=== PATIENT | female | born 1960 | race Caucasian/White ===

== ENCOUNTER 2017-06-10 07:29 | Day surgery (SDC) | payer MEDICAID ==
[~2017-06-10] VITALS: Ht 160 cm; Wt 79.9 kg
[2017-06-10] VITALS (10 sets, daily range): BP systolic 96–124; BP diastolic 52–80; PULSE 60–70; RESP 16–22; Ht 160 cm; Wt 79.9 kg
[2017-06-10] MEDS ORDERED: POLYMYXIN/BACITRACIN 1L IRRIG IRR ONE (08:00)
[2017-06-10] MEDS ORDERED: SOD CHLORIDE 0.9% 1,000 ML IV SCH (08:00)
[2017-06-10] MEDS ORDERED: CEFAZOLIN 1 GM/50 ML (PMX) 50 ML IVPB ONE ×2 (08:00→09:18)
[2017-06-10] MEDS ORDERED: LIDOCAINE 2%/EPI 30 ML INJ ONE (09:16)
[2017-06-10] MEDS ORDERED: SOD CHLORIDE 0.9% 500 ML ONE (09:16)
[2017-06-10] MEDS ORDERED: HEPARIN 1000 UNITS/ML 10 ML INJ ONE (09:16)
[2017-06-10] MEDS ORDERED: MIDAZOLAM 1 MG/ML 2 ML INJ ONE (09:18)
[2017-06-10] MEDS ORDERED: FENTAnyl 50 MCG/ML VIAL ONE (09:18)
[2017-06-10] MEDS ORDERED: HYDROCODONE/APAP (5/325) TAB PO PRN (10:30)
--- NOTE | 2017-06-10 10:34 | RADRPT ---
PROCEDURE: FLUOROSCOPIC AND ULTRASONOGRAPHIC-GUIDED PLACEMENT OF RIGHT CHEST PORT. CLINICAL INDICATION: History of left breast cancer. Venous access for chemotherapy. TECHNIQUE: INTRAPROCEDURE MEDICATIONS: PB antibiotic solution 40 cc applied topically. 1 gram Ancef intravenous ly, intra-op. IV Versed and Fentanyl per protocol. Informed consent was obtained. The procedure, risks, benefits, complications and alternatives were explained to the patient. Risks including bleeding, infection, and pneumothorax were explained. The patient understood and was willing to proceed. A procedural pause was performed. The patient's name , date of , and procedure to be performed were verified. The central line was inserted with al l elements of maximal sterile barrier technique. All of the following were used: head covering, faci al mask, sterile gown, sterile gloves, a large sterile sheet, hand hygiene, and 2% chlorhexidine fo r cutaneous antisepsis. The right neck and anterior/superior chest wall were prepped and draped in usual sterile fashion. Limited sonography of the right neck was then performed. Noted is a patent right internal jugular ve in. Following the local injection of 1% lidocaine, the right internal jugular vein was punctured under s onographic guidance with a 20-gauge needle through which a 0.018 inch floppy tip guidewire was advan william into the superior vena cava with fluoroscopic guidance. The tract was dilated to 5 Mongolian and the wire was then replaced with a 0.035 in Amplatz guidewire. Serial dilatation was then performed and a 8 Mongolian peel away sheath was introduced. A site just inferior to the clavicle in the superior anterior right chest wall was localized. One pe rcent lidocaine was used as local anesthesia. A transverse 2.5 cm incision was made utilizing a 15 b lade scalpel. Utilizing blunt dissection a subcutaneous pocket was created inferior to the incision. The cavity was flushed with approximately 40 cc of PB antibiotic solution. The catheter was tunneled underneath the skin from the newly created pocket to the puncture site in the neck. The central line catheter was pulled through the tract. The catheter was then advanced thr ough the sheath until the tip was positioned in the right atrium. The peel-away sheath was removed. The catheter was flushed and clamped. The 8 Mongolian catheter was then connected to the Angiodynamics power port. The port was then placed i nto the pocket. Prior to closing the instrument and sponge count was verified and was correct. The s ubcutaneous tissue was closed with 3-0 Vicryl interrupted suture. The skin at the site of the pocket and in the neck was closed with 4-0 Vicryl suture in a running subcuticular technique. The port was flushed with 1500 units of heparin in 1.5 cc utilizing a Holguin needle. The needle was removed. A dr essing was applied. The patient tolerated procedure well. COMPARISON: None. FINDINGS: Ultrasound images were recorded and stored in the patient's medical record. Final radiographic images demonstrate the tip of the catheter in the upper right atrium. A total of 0.1 minutes of fluoroscopy time was used. 5 images of the chest were obtained with the [employer]. The ultrasound images demonstrate the needle entering the internal jugular vein. IMPRESSION: 1. Successful ultrasonographic and fluoroscopic guided placement of right chest power port. RPTAT: QQ .Eugenio Kee MD, Date Time Electronically viewed and signed by .Eugenio Kee MD, MD on 06/10/2017 10:34 .R/
--- NOTE | 2017-06-10 10:36 | RADRPT ---
PROCEDURE: Ultrasound guidance for placement of needle in right internal jugular vein. CLINICAL INDICATION: Venous access. TECHNIQUE: Prior to the procedure, informed consent was obtained. Risks including bleeding, infection, and pneu mothorax were explained to the patient. The patient understood and was willing to proceed. A procedu ral pause was performed. The patient's name, date of , and procedure to be performed were verif ied. The central line was inserted with all elements of maximal sterile barrier technique. All of th e following were used: head covering, facial mask, sterile gown, sterile gloves, a large sterile she et, hand hygiene, and 2% chlorhexidine for cutaneous antisepsis. The right neck and anterior/super ior chest wall was prepped and draped in usual sterile fashion. Limited sonography of the right neck was then performed. Noted is a patent right internal jugular ve in. Ultrasound images were recorded and stored in the patient's medical record. Following the local injection of Xylocaine, the right internal jugular vein was punctured under sono graphic guidance with a 20-gauge needle through which a 0.018 inch floppy tip guidewire was advanced into the superior vena cava. The patient tolerated the procedure well. The remainder of the proce dure was performed and dictated under separate cover. COMPARISON: None. FINDINGS: The ultrasound images demonstrate a patent right internal jugular vein. The subsequent images demon strate the needle entering the right internal jugular vein. IMPRESSION: 1. Ultrasound guidance for a needle placement in right internal jugular vein. RPTAT: QQ .Eugenio Kee MD, Date Time Electronically viewed and signed by .Eugenio Kee MD, MD on 06/10/2017 10:35 .R/
== END 2017-06-10 12:57 | disposition home or self-care (01) ==
LOC: SDS 07:29
PROVIDERS: ATTEND Internal Medicine Hematology & Oncology
DX: C50.912 Malignant neoplasm of unspecified site of left female breast (principal)
CPT/HCPCS: 36561; 76942; C1788; J0690; J1644; J2250; J3010; J7040; Z7610

== ENCOUNTER → 2017-08-01 | Outpatient (CLI) | payer MEDICAID | END | disposition home or self-care (01) | LOC: EKG 08:37 | PROVIDERS: ATTEND Internal Medicine Hematology & Oncology | DX: C50.919 Malignant neoplasm of unspecified site of unspecified female breast (principal) | CPT/HCPCS: 93306 ==

== ENCOUNTER 2017-10-17 13:45 | Observation (INO) | END 2017-10-18 17:30 | disposition home or self-care (01) ==

== ENCOUNTER 2019-03-19 10:04 | Day surgery (SDC) | payer MEDICAID ==
[~2019-03-19] VITALS: Ht 160 cm; Wt 80.5 kg
[~2019-03-19 10:04] MED LIST: HYDR-4011 PO
[2019-03-19] MEDS ORDERED: SOD CHLORIDE 0.9% 1,000 ML IV SCH (10:27)
[2019-03-19 11:19] VITALS: BP 135/73; PULSE 62; RESP 16; Ht 160 cm; Wt 80.5 kg
[2019-03-19] MEDS ORDERED: LIDOCAINE 1% (MPF) 5 ML VIAL ONE (12:40)
[2019-03-19] MEDS ORDERED: FENTAnyl 50 MCG/ML VIAL ONE (13:29)
[2019-03-19] MEDS ORDERED: ONDANSETRON 4 MG INJ ONE (14:57)
--- NOTE | 2019-03-23 09:04 | HPN ---
Date/Time of Note Date/Time of Note DATE: 03/23/19 TIME: 09:04 Interval H&P Admission Note Pt. seen H&P reviewed: No system changes NILDA BUNCH MD Mar 23, 2019 09:04
== END 2019-03-19 19:00 | disposition home or self-care (01) ==
LOC: SDS 10:04
PROVIDERS: ATTEND Nuclear Medicine
DX: C50.912 Malignant neoplasm of unspecified site of left female breast (principal); C78.01 Secondary malignant neoplasm of right lung
CPT/HCPCS: 32405; 71045; 77012; 88307; 88313; J2405; J3010; Z7610; 88342

== ENCOUNTER 2019-03-19 15:55 | Inpatient (IN) | payer MEDICAID ==
[~2019-03-19] VITALS: Ht 157.5 cm; Wt 81.5 kg
[2019-03-19] MEDS ORDERED: SOD CHLORIDE 0.9% 1,000 ML IV STA (17:46)
--- NOTE | 2019-03-19 17:58 | ERD ---
ER Documentation Chief Complaint Chief Complaint PT CAME FROM IR S/P THORACENTESIS FOR LUNG BIOPSY C/O SOB HPI This is a 59-year-old female with a known history of left breast carcinoma,and a right sided lung nodule that was found on outpatient CT scan of her chest that was 7 mm. The patient had an outpatient CT-guided biopsy of her lung performed today at [facility] ordered by her primary care physician Dr. Craig During the procedure the patient had been given 100 mg of fentanyl intravenously. Chest radiograph performed after the procedure indicated a small pneumothorax on the right side of roughly 20%. The patient was not complaining of any shortness of breath or difficulty breathing. I spoke with the interventional radiologist Dr. Canchola and the patient will be sent to the emergency department for admission for observation. The patient had a PET CT scan that was performed in February earlier this month 2018. That when the incidental finding of the 7 mm right upper nodule was seen. The patient also has an enlarged nodular thyroid gland and is scheduled to undergo an outpatient thyroid biopsy this Saturday 3 days ago from now. The patient has a triple negative breast carcinoma. She had 4-4 cycles of Adriamycin cytotoxin. She has completed 4-4 cycles of Taxotere. The patient has an underlying past medical history of recurrent vertigo and anemia. Her past surgical history includes a tubal ligation. ROS All systems reviewed and are negative except as per history of present illness. Medications Home Meds Discontinued Scripts Hydrocodone/Acetaminophen (Lowber 5-325 Tablet) 1 Each Tablet, 1 EACH PO Q4 for PAIN, #30 TAB Prov:CAROLE MULLINS 10/18/17 Allergies Allergies: Coded Allergies: No Known Allergy (Unverified , 03/19/19) PMhx/Soc History of Surgery: Yes (BTL, LEFT BREAST MASTECTOMY) Anesthesia Reaction: No Hx Neurological Disorder: Yes (VERTIGO) Hx Respiratory Disorders: No Hx Cardiac Disorders: No Hx Psychiatric Problems: No Hx Miscellaneous Medical Probl: Yes (ANEMIA) Hx Alcohol Use: No Hx Substance Use: No Hx Tobacco Use: No Smoking Status: Never smoker Physical Exam Vitals Vital Signs Date Temp Pulse Resp B/P (MAP) Pulse Ox O2 O2 Flow FiO2 Time Delivery Rate 03/19/19 64 20 134/72 100 Nasal 2.0 18:40 (92) Cannula 03/19/19 60 18 140/68 100 Non 15.0 17:52 (92) Rebreather 03/19/19 98.0 58 20 118/69 96 16:23 (85) 03/19/19 Non 15.0 16:23 Rebreather Physical Exam Constitutional:Well-developed. Well-nourished. HEENT:Normocephalic. Atraumatic.Pupils were equal round reactive to light. Moist mucous membranes.No tonsillar exudates. Neck: No nuchal rigidity. No lymphadenopathy. No posterior cervical spine tenderness or step-offs. Respiratory: Not using accessory muscles of respiration. Slightly diminished breath sounds of the right upper lobe. Breath sounds were present throughout the left hemothorax. No rhonchi. No rales. No wheezing. Cardiovascular: Regular rate regular rhythm.No murmurs. No rubs were appreciated.S1, S2 normal. Distal pulses are palpable 2+ bilaterally. GI: Abdomen was soft. Nontender. Non Distended. No pulsatile abdominal masses or bruits. No rebound. No guarding. Bowel sounds were present and normal. Muscle skeletal: Full range of motion of both the upper and lower extremities bilaterally.Normal muscle tone.No assymetrical calf tenderness or swelling. Skin: No petechia, no purpura. No lesions on the palms or the soles of the feet. No maculopapular rash. NEURO: Patient was alert, awake, orientated x3.No facial droop. Gait observed and normal with no ataxia.Speech had regular rate and rhythm. No focal neurological deficits. Result Diagram: 03/19/19 1623 03/19/19 1623 Results 24 hrs Laboratory Tests Test 03/19/19 16:23 White Blood Count 5.9 10^3/ul Red Blood Count 4.01 10^6/ul Hemoglobin 10.3 g/dl Hematocrit 33.2 % Mean Corpuscular Volume 82.8 fl Mean Corpuscular Hemoglobin 25.7 pg Mean Corpuscular Hemoglobin Concent 31.0 g/dl Red Cell Distribution Width 16.9 % Platelet Count 164 10^3/UL Mean Platelet Volume 9.2 fl Immature Granulocytes % 0.300 % Neutrophils % 73.4 % Lymphocytes % 14.5 % Monocytes % 8.9 % Eosinophils % 2.4 % Basophils % 0.5 % Nucleated Red Blood Cells % 0.0 /100WBC Immature Granulocytes # 0.020 10^3/ul Neutrophils # 4.4 10^3/ul Lymphocytes # 0.9 10^3/ul Monocytes # 0.5 10^3/ul Eosinophils # 0.1 10^3/ul Basophils # 0.0 10^3/ul Nucleated Red Blood Cells # 0.0 10^3/ul Prothrombin Time 13.6 Sec Prothrombin Time Ratio 1.1 INR International Normalized Ratio 1.03 Activated Partial Thromboplast Time 23.5 Sec Sodium Level 142 mmol/L Potassium Level 4.0 mmol/L Chloride Level 110 mmol/L Carbon Dioxide Level 23 mmol/L Anion Gap 9 Blood Urea Nitrogen 19 mg/dl Creatinine 0.57 mg/dl Est Glomerular Filtrat Rate mL/min > 60 mL/min Glucose Level 96 mg/dl Calcium Level 8.7 mg/dl Total Bilirubin 0.4 mg/dl Direct Bilirubin 0.00 mg/dl Indirect Bilirubin 0.4 mg/dl Aspartate Amino Transf (AST/SGOT) 17 IU/L Alanine Aminotransferase (ALT/SGPT) 15 IU/L Alkaline Phosphatase 72 IU/L Total Protein 7.0 g/dl Albumin 3.8 g/dl Globulin 3.20 g/dl Albumin/Globulin Ratio 1.18 Current Medications Medications Dose Sig/Bobby Start Time Status Last (Trade) Ordered Route PRN Stop Time Admin Dose Reason Admin Sodium 1,000 ml @ Q1H STAT 03/19/19 DC 03/19/19 Chloride 1,000 mls/hr IV 17:46 03/19/19 18:05 18:45 IV Flush 3 ml PER 03/19/19 (NS 3 ml) PROTOCOL IV 18:30 Ondansetron 4 mg Q6H PRN 03/19/19 HCl (Zofran IV 18:30 Inj) NAUSEA/VOMITI NG 650 mg Q6H PRN 03/19/19 Acetaminophen PO .PAIN 1-3 18:30 (Tylenol OR TEMP Tab) Ondansetron 4 mg ER BRIDGE 03/19/19 HCl (Zofran PRN IV 20:00 03/20/19 Inj) NAUSEA/VOMITI 19:59 NG 650 mg ER BRIDGE 03/19/19 Acetaminophen PRN PO 20:00 03/20/19 (Tylenol .MILD PAIN 19:59 Tab) 1-3 OR TEMP Procedures/MDM This is a very pleasant 59-year-old female that presented to the emergency department after an idiopathic pneumothorax that occurred during a routine outpatient CT-guided biopsy of a nodule found in the right upper lung. The patient is HER-2 negative breast carcinoma. The patient had a previous mastectomy performed by Dr. Hunter. A chest radiograph had been performed after the procedure that was reviewed by the radiologist and indicated that there was a pneumothorax that was less than 20% in the right upper lung. 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 Patient was given a liter bolus of normal saline she stated she felt very dehydrated she has been n.p.o. for 22 hours. The patient had no hypoxia. CT scan indicated that the patient had a small right-sided pneumothorax that was roughly 10% to 15%. The patient was not hypoxic and therefore will continue to be monitored with low flow supplemental oxygen. Critical Care: Time: 50 minutes Treatments/Evaluations: Close monitoring and treatment of unstable vital signs, cardiorespiratory, and neurologic status, while maintaining tight balance of fluid, respiratory, and cardiac interventions. Time does not include performing any of the above billable procedures. Departure Diagnosis: Primary Impression: Pneumothorax after biopsy Condition: Serious CHRISSY DAVENPORT MD Mar 19, 2019 17:58
--- NOTE | 2019-03-19 18:21 | HP ---
Date/Time of Note Date/Time of Note DATE: 03/19/19 TIME: 18:21 Assessment/Plan VTE Prophylaxis Pharmacological prophylaxis: other Lines/Catheters IV [facility]ter [facility]from [facility]): Saline Lock Assessment/Plan Hospital Course HPI Patient is a female with a past medical history significant for left- sided breast cancer in remission who was getting a elective lung biopsy for suspected right-sided lung nodule who developed spontaneous pneumothorax. Before the procedure and even after the procedure the patient denies any shortness of breath whatsoever and feels completely fine at this time. Patient has absolutely no acute complaints, denies chest pain, shortness of breath, nausea, vomiting, abdominal pain, bowel or bladder dysfunction, leg pain. Objective Physical exam General: Patient is laying in bed and answers questions appropriately Mentation: Patient is alert and oriented 4, Head: Normocephalic atraumatic Eyes: EOMI, pupils reactive to light Neck: Supple, nontender, midline Respiratory: Clear to auscultation bilaterally Cardiovascular: regular rate, no obvious murmurs Gastrointestinal: non-tender to palpation, bowel sounds heard. Neurological: Moves all extremities spontaneously Skin: No new skin lesions Assessment and plan Right small apical pneumothorax -No shortness of breath, vital signs within normal limits -Patient stable -Continue nonrebreather, keep O2 sat greater than 96% -CT pending -We will perform serial chest x-rays after initial CT -Neurology consulted Questionable right lung base patchy consolidation -Doubt pneumonia as patient has no respiratory symptoms now or before with no other symptoms of infection -We will await CT results for more details -Pulmonology recommendations appreciated Right lung nodule -Biopsy done and because of above pneumothorax -Follow-up with patient's outpatient provider Thyroid nodule -Patient has a scheduled biopsy on Saturday Disposition -Close monitoring and observation on telemetry Result Diagram: 03/19/19 1623 03/19/19 1623 Results 24hrs Laboratory Tests Test 03/19/19 16:23 White Blood Count 5.9 Red Blood Count 4.01 L Hemoglobin 10.3 L Hematocrit 33.2 L Mean Corpuscular Volume 82.8 Mean Corpuscular Hemoglobin 25.7 L Mean Corpuscular Hemoglobin Concent 31.0 L Red Cell Distribution Width 16.9 H Platelet Count 164 Mean Platelet Volume 9.2 Immature Granulocytes % 0.300 Neutrophils % 73.4 Lymphocytes % 14.5 L Monocytes % 8.9 Eosinophils % 2.4 Basophils % 0.5 Nucleated Red Blood Cells % 0.0 Immature Granulocytes # 0.020 Neutrophils # 4.4 Lymphocytes # 0.9 Monocytes # 0.5 Eosinophils # 0.1 Basophils # 0.0 Nucleated Red Blood Cells # 0.0 Prothrombin Time 13.6 Prothrombin Time Ratio 1.1 INR International Normalized Ratio 1.03 Activated Partial Thromboplast Time 23.5 Sodium Level 142 Potassium Level 4.0 Chloride Level 110 Carbon Dioxide Level 23 Anion Gap 9 Blood Urea Nitrogen 19 Creatinine 0.57 Est Glomerular Filtrat Rate mL/min > 60 Glucose Level 96 Calcium Level 8.7 Total Bilirubin 0.4 Direct Bilirubin 0.00 Indirect Bilirubin 0.4 Aspartate Amino Transf (AST/SGOT) 17 Alanine Aminotransferase (ALT/SGPT) 15 Alkaline Phosphatase 72 Total Protein 7.0 Albumin 3.8 Globulin 3.20 Albumin/Globulin Ratio 1.18 HPI/ROS Admit Date/Time Admit Date/Time PMH/Family/Social Past Medical History Medications Current Medications Sodium Chloride 1,000 ml @ 1,000 mls/hr Q1H STAT IV ; Start 03/19/19 at 17:46; Stop 03/19/19 at 18:45 Coded Allergies: No Known Allergy (Unverified , 03/19/19) Social History Smoking Status: Never smoker Exam/Review of Systems Vital Signs Vitals Vital Signs Date Temp Pulse Resp B/P (MAP) Pulse Ox O2 O2 Flow FiO2 Time Delivery Rate 03/19/19 60 18 140/68 100 Non 15.0 17:52 (92) Rebreather 03/19/19 98.0 16:23 STEPHEN HARDY Mar 19, 2019 18:21
[2019-03-19] MEDS ORDERED: NACL 0.9% 3 ML SYG IV SCH (18:30)
[2019-03-19] MEDS ORDERED: ONDANSETRON 4 MG INJ IV PRN ×2 (18:30→20:00)
[2019-03-19] MEDS ORDERED: ACETAMINOPHEN 325 MG TAB PO PRN (20:00)
[2019-03-19] MEDS: ACETAMINOPHEN 325 MG TAB PO PRN (23:37)
[2019-03-20 00:15] VITALS: Ht 157.5 cm; Wt 81.5 kg
[2019-03-20 00:30] VITALS: BP 117/56; PULSE 63; RESP 18
[2019-03-20 04:00] VITALS: BP 122/62; PULSE 68; RESP 18
[2019-03-20 07:12] VITALS: BP 111/71; PULSE 70; RESP 18
[2019-03-20 11:18] VITALS: BP 143/77; PULSE 70; RESP 18
--- NOTE | 2019-03-20 11:44 | CONS ---
Assessment/Plan Assessment/Plan Assessment/Plan (Daily) Assessment and recommendations; 1. Patient admitted for biopsy of right upper lobe lung lesion which on CT imaging appears malignant. Patient developed small pneumothorax postprocedure and is currently is symptomatic. 2. Chest x-ray from today showing barely visible very tiny right apical pneum othorax. 3. History of thyroid lesion as well. Continue current supportive care. Consider discharge in 24 hours. Patient is cleared from a pulmonary perspective to undergo thyroid biopsy as an outpatient early next week. I did have a detailed discussion with the patient as well as her daughter at bedside and answered all their questions. Consultation Date/Type/Reason Admit Date/Time Date of Consultation: Mar 20, 2019 Type of Consult Pulmonary Patient is a pleasant 59-year-old lady who was admitted for right lung biopsy for mass lesion. Patient developed a small pneumothorax postprocedure. By the time I saw her, patient is laying comfortably in bed on 100% nonrebreather mask and denies any respiratory symptoms whatsoever. Denies any chest pain. Past medical history; 1. history of breast cancer. 2. Thyroid lesion. Awaiting biopsy early next week. Medications; reviewed. Allergies; none. Social history; noncontributory. Family history; noncontributory. 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 Review of systems; denies any headache, seizures, chest pain, shortness of breath, coughing, hemoptysis or sputum production. Denies any abdominal pain, nausea vomiting. Any weight loss. Any skin changes or any arthritis symptoms. Denies any GI symptoms. General exam; middle-aged lady, awake alert, currently no distress. Date/Time of Note DATE: 03/20/19 TIME: 11:41 Past Medical History Home Meds Discontinued Scripts Hydrocodone/Acetaminophen (Cutler 5-325 Tablet) 1 Each Tablet, 1 EACH PO Q4 for PAIN, #30 TAB Prov:ZACHARY MULLINSA 10/18/17 Medications Current Medications IV Flush (NS 3 ml) 3 ml PER PROTOCOL IV ; Start 03/19/19 at 18:30 Ondansetron HCl (Zofran Inj) 4 mg Q6H PRN IV NAUSEA/VOMITING; Start 03/19/19 at 18:30 Acetaminophen (Tylenol Tab) 650 mg Q6H PRN PO .PAIN 1-3 OR TEMP Last administered on 03/19/19at 23:37; Admin Dose 650 MG; Start 03/19/19 at 18:30 Ondansetron HCl (Zofran Inj) 4 mg ER BRIDGE PRN IV NAUSEA/VOMITING; Start 03/19/19 at 20:00; Stop 03/20/19 at 19:59 Acetaminophen (Tylenol Tab) 650 mg ER BRIDGE PRN PO .MILD PAIN 1-3 OR TEMP; Start 03/19/19 at 20:00; Stop 03/20/19 at 19:59 Allergies: Coded Allergies: No Known Allergy (Unverified , 03/19/19) Social History Smoking Status: Never smoker Exam/Review of Systems Exam Vitals Vital Signs Date Temp Pulse Resp B/P (MAP) Pulse Ox O2 O2 Flow FiO2 Time Delivery Rate 03/20/19 98.4 70 18 143/77 100 Non 11:18 (99) Rebreather 03/20/19 15.0 08:30 Intake and Output 03/19/19 03/19/19 03/20/19 1515:00 23:00 07:00 IntakeIntake Total 500 ml BalanceBalance 500 ml Exam HEENT exam; supple neck, no JVD. No lymphadenopathy. Midline trachea. No thyromegaly. Patient has good dentition. No neck masses. Chest exam; clear to auscultation. S1-S2 audible, no murmurs. Regular rhythm. Abdomen exam; soft, nontender. No organomegaly. Bowel sounds audible. Extremity exam; no peripheral edema clubbing. COD CLERK exam; no focal deficit. Results Result Diagram: 03/20/19 0552 03/20/19 0552 Results 24hrs Laboratory Tests Test 03/19/19 16:23 03/20/19 05:52 White Blood Count 5.9 6.0 Red Blood Count 4.01 L 4.07 L Hemoglobin 10.3 L 10.5 L Hematocrit 33.2 L 33.5 L Mean Corpuscular Volume 82.8 82.3 Mean Corpuscular Hemoglobin 25.7 L 25.8 L Mean Corpuscular Hemoglobin Concent 31.0 L 31.3 L Red Cell Distribution Width 16.9 H 16.8 H Platelet Count 164 175 Mean Platelet Volume 9.2 9.2 Immature Granulocytes % 0.300 0.200 Neutrophils % 73.4 71.5 Lymphocytes % 14.5 L 17.1 Monocytes % 8.9 8.0 Eosinophils % 2.4 2.5 Basophils % 0.5 0.7 Nucleated Red Blood Cells % 0.0 0.0 Immature Granulocytes # 0.020 0.010 Neutrophils # 4.4 4.3 Lymphocytes # 0.9 1.0 Monocytes # 0.5 0.5 Eosinophils # 0.1 0.2 Basophils # 0.0 0.0 Nucleated Red Blood Cells # 0.0 0.0 Prothrombin Time 13.6 Prothrombin Time Ratio 1.1 INR International Normalized Ratio 1.03 Activated Partial Thromboplast Time 23.5 Sodium Level 142 141 Potassium Level 4.0 4.2 Chloride Level 110 109 Carbon Dioxide Level 23 23 Anion Gap 9 9 Blood Urea Nitrogen 19 14 Creatinine 0.57 0.63 Est Glomerular Filtrat Rate mL/min > 60 > 60 Glucose Level 96 96 Calcium Level 8.7 8.9 Total Bilirubin 0.4 0.5 Direct Bilirubin 0.00 0.00 Indirect Bilirubin 0.4 0.5 Aspartate Amino Transf (AST/SGOT) 17 15 Alanine Aminotransferase (ALT/SGPT) 15 16 Alkaline Phosphatase 72 69 Total Protein 7.0 6.8 Albumin 3.8 3.5 Globulin 3.20 3.30 H Albumin/Globulin Ratio 1.18 1.06 Hemoglobin A1c 5.4 Magnesium Level 1.9 Triglycerides Level 92 Cholesterol Level 144 LDL Cholesterol, Calculated 98 HDL Cholesterol 28 L Cholesterol/HDL Ratio 5.1 Thyroid Stimulating Hormone (TSH) 3.910 Medications Medication Current Medications IV Flush (NS 3 ml) 3 ml PER PROTOCOL IV ; Start 03/19/19 at 18:30 Ondansetron HCl (Zofran Inj) 4 mg Q6H PRN IV NAUSEA/VOMITING; Start 03/19/19 at 18:30 Acetaminophen (Tylenol Tab) 650 mg Q6H PRN PO .PAIN 1-3 OR TEMP Last administered on 03/19/19at 23:37; Admin Dose 650 MG; Start 03/19/19 at 18:30 Ondansetron HCl (Zofran Inj) 4 mg ER BRIDGE PRN IV NAUSEA/VOMITING; Start 03/19/19 at 20:00; Stop 03/20/19 at 19:59 Acetaminophen (Tylenol Tab) 650 mg ER BRIDGE PRN PO .MILD PAIN 1-3 OR TEMP; Start 8/1/19 at 20:00; Stop 03/20/19 at 19:59 BOBBY DE JESUS Mar 20, 2019 11:44
--- NOTE | 2019-03-20 14:52 | PN ---
Date/Time of Note Date/Time of Note DATE: 03/20/19 TIME: 14:42 Assessment/Plan VTE Prophylaxis Risk score (from [facility] [place])>0 risk: 1 SCD applied (from [facility] [place]): Yes Pharmacological prophylaxis: other Pharm contraindication: other Lines/Catheters IV Catheter Type (from [facility]): [place] Assessment/Plan Assessment/Plan 1. Right small to moderate apical pneumothorax, complicated from CT-guided b iopsy, O2, supportive care, repeat CXR in am 2. Right upper lobe lung mass/nodules, s/p CT-guided biopsy on 03/19/2019, follow up with pathology, 3. Thyroid nodule, patient has a scheduled biopsy on Saturday 4. h/o breast cancer Result Diagram: 03/20/19 0552 03/20/19 0552 Results 24hrs Laboratory Tests Test 03/19/19 16:23 03/20/19 05:52 White Blood Count 5.9 6.0 Red Blood Count 4.01 L 4.07 L Hemoglobin 10.3 L 10.5 L Hematocrit 33.2 L 33.5 L Mean Corpuscular Volume 82.8 82.3 Mean Corpuscular Hemoglobin 25.7 L 25.8 L Mean Corpuscular Hemoglobin Concent 31.0 L 31.3 L Red Cell Distribution Width 16.9 H 16.8 H Platelet Count 164 175 Mean Platelet Volume 9.2 9.2 Immature Granulocytes % 0.300 0.200 Neutrophils % 73.4 71.5 Lymphocytes % 14.5 L 17.1 Monocytes % 8.9 8.0 Eosinophils % 2.4 2.5 Basophils % 0.5 0.7 Nucleated Red Blood Cells % 0.0 0.0 Immature Granulocytes # 0.020 0.010 Neutrophils # 4.4 4.3 Lymphocytes # 0.9 1.0 Monocytes # 0.5 0.5 Eosinophils # 0.1 0.2 Basophils # 0.0 0.0 Nucleated Red Blood Cells # 0.0 0.0 Prothrombin Time 13.6 Prothrombin Time Ratio 1.1 INR International Normalized Ratio 1.03 Activated Partial Thromboplast Time 23.5 Sodium Level 142 141 Potassium Level 4.0 4.2 Chloride Level 110 109 Carbon Dioxide Level 23 23 Anion Gap 9 9 Blood Urea Nitrogen 19 14 Creatinine 0.57 0.63 Est Glomerular Filtrat Rate mL/min > 60 > 60 Glucose Level 96 96 Calcium Level 8.7 8.9 Total Bilirubin 0.4 0.5 Direct Bilirubin 0.00 0.00 Indirect Bilirubin 0.4 0.5 Aspartate Amino Transf (AST/SGOT) 17 15 Alanine Aminotransferase (ALT/SGPT) 15 16 Alkaline Phosphatase 72 69 Total Protein 7.0 6.8 Albumin 3.8 3.5 Globulin 3.20 3.30 H Albumin/Globulin Ratio 1.18 1.06 Hemoglobin A1c 5.4 Magnesium Level 1.9 Triglycerides Level 92 Cholesterol Level 144 LDL Cholesterol, Calculated 98 HDL Cholesterol 28 L Cholesterol/HDL Ratio 5.1 Thyroid Stimulating Hormone (TSH) 3.910 Subjective 24 Hr Interval Summary Free Text/Dictation no chest pain or shortness of breath Exam/Review of Systems Exam Vitals Vital Signs Date Temp Pulse Resp B/P (MAP) Pulse Ox O2 O2 Flow FiO2 Time Delivery Rate 03/20/19 98.4 70 18 143/77 100 Non 11:18 (99) Rebreather 03/20/19 15.0 08:30 Intake and Output 03/19/19 03/19/19 03/20/19 1515:00 23:00 07:00 IntakeIntake Total 500 ml BalanceBalance 500 ml Constitutional: alert, oriented, well developed Psych: no complaints, nl mood/affect Head: normocephalic, atraumatic Eyes: nl conjunctiva, EOMI, nl lids, PERRL ENMT: nl external ears & nose, nl lips & teeth, nl nasal mucosa & septum Neck: supple, non-tender Respiratory: diminished breath sounds (on right side) Cardiovascular: regular rate and rhythm, nl pulses; No bruits, No diastolic murmur, No edema, No gallop, No irregular rhythm, No jugular venous distention (JVD), No murmurs/extra sounds, No rub, No systolic murmur, No S3, No S4, No other Gastrointestinal: soft, nl liver, spleen, non-tender; No ascites, No bowel sounds, No distended, No firm, No hepatomegaly, No mass, No rebound or guarding, No splenomegaly, No surgical scars, No tender, No other Musculoskeletal: nl extremities to inspection Extremities: normal pulses; No calf tenderness, No cyanosis, No clubbing, No edema, No pitting pedal edema, No palpable cord, No tenderness, No other Neurological: 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 II-XII intact, nl mental status, nl speech Skin: nl turgor Results Results 24hrs Laboratory Tests Test 03/19/19 16:23 03/20/19 05:52 White Blood Count 5.9 6.0 Red Blood Count 4.01 L 4.07 L Hemoglobin 10.3 L 10.5 L Hematocrit 33.2 L 33.5 L Mean Corpuscular Volume 82.8 82.3 Mean Corpuscular Hemoglobin 25.7 L 25.8 L Mean Corpuscular Hemoglobin Concent 31.0 L 31.3 L Red Cell Distribution Width 16.9 H 16.8 H Platelet Count 164 175 Mean Platelet Volume 9.2 9.2 Immature Granulocytes % 0.300 0.200 Neutrophils % 73.4 71.5 Lymphocytes % 14.5 L 17.1 Monocytes % 8.9 8.0 Eosinophils % 2.4 2.5 Basophils % 0.5 0.7 Nucleated Red Blood Cells % 0.0 0.0 Immature Granulocytes # 0.020 0.010 Neutrophils # 4.4 4.3 Lymphocytes # 0.9 1.0 Monocytes # 0.5 0.5 Eosinophils # 0.1 0.2 Basophils # 0.0 0.0 Nucleated Red Blood Cells # 0.0 0.0 Prothrombin Time 13.6 Prothrombin Time Ratio 1.1 INR International Normalized Ratio 1.03 Activated Partial Thromboplast Time 23.5 Sodium Level 142 141 Potassium Level 4.0 4.2 Chloride Level 110 109 Carbon Dioxide Level 23 23 Anion Gap 9 9 Blood Urea Nitrogen 19 14 Creatinine 0.57 0.63 Est Glomerular Filtrat Rate mL/min > 60 > 60 Glucose Level 96 96 Calcium Level 8.7 8.9 Total Bilirubin 0.4 0.5 Direct Bilirubin 0.00 0.00 Indirect Bilirubin 0.4 0.5 Aspartate Amino Transf (AST/SGOT) 17 15 Alanine Aminotransferase (ALT/SGPT) 15 16 Alkaline Phosphatase 72 69 Total Protein 7.0 6.8 Albumin 3.8 3.5 Globulin 3.20 3.30 H Albumin/Globulin Ratio 1.18 1.06 Hemoglobin A1c 5.4 Magnesium Level 1.9 Triglycerides Level 92 Cholesterol Level 144 LDL Cholesterol, Calculated 98 HDL Cholesterol 28 L Cholesterol/HDL Ratio 5.1 Thyroid Stimulating Hormone (TSH) 3.910 Medications Medication Current Medications IV Flush (NS 3 ml) 3 ml PER PROTOCOL IV ; Start 03/19/19 at 18:30 Ondansetron HCl (Zofran Inj) 4 mg Q6H PRN IV NAUSEA/VOMITING; Start 03/19/19 at 18:30 Acetaminophen (Tylenol Tab) 650 mg Q6H PRN PO .PAIN 1-3 OR TEMP Last administered on 03/19/19at 23:37; Admin Dose 650 MG; Start 03/19/19 at 18:30 Ondansetron HCl (Zofran Inj) 4 mg ER BRIDGE PRN IV NAUSEA/VOMITING; Start 03/19/19 at 20:00; Stop 03/20/19 at 19:59 Acetaminophen (Tylenol Tab) 650 mg ER BRIDGE PRN PO .MILD PAIN 1-3 OR TEMP; Start 03/19/19 at 20:00; Stop 03/20/19 at 19:59 CAMDEN THOMPSON MD Mar 20, 2019 14:52
[2019-03-20 15:36] VITALS: BP 139/67; PULSE 80; RESP 16
[2019-03-20 20:00] VITALS: BP 140/64; PULSE 78; RESP 18
[2019-03-20] MEDS: ACETAMINOPHEN 325 MG TAB PO PRN (21:17)
[2019-03-21] VITALS: BP 128/62; PULSE 59; RESP 18
[2019-03-21 04:00] VITALS: BP 133/67; PULSE 65; RESP 18
[2019-03-21 07:37] VITALS: BP 129/67; PULSE 69; RESP 20
--- NOTE | 2019-03-21 10:41 | CONS ---
Consultation Date/Type/Reason Admit Date/Time Mar 20, 2019 at 09:10 Initial Consult Date 03/20/19 Type of Consult Pulmonary Patient is a pleasant 59-year-old lady who was admitted for right lung biopsy for mass lesion. Patient developed a small pneumothorax postprocedure. By the time I saw her, patient is laying comfortably in bed on 100% nonrebreather mask and denies any respiratory symptoms whatsoever. Denies any chest pain. Past medical history; 1. history of breast cancer. 2. Thyroid lesion. Awaiting biopsy early next week. Medications; reviewed. Allergies; none. Social history; noncontributory. Family history; noncontributory. 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 Review of systems; denies any headache, seizures, chest pain, shortness of breath, coughing, hemoptysis or sputum production. Denies any abdominal pain, nausea vomiting. Any weight loss. Any skin changes or any arthritis symptoms. Denies any GI symptoms. General exam; middle-aged lady, awake alert, currently no distress. Date/Time of Note DATE: 03/21/19 TIME: 10:39 24 HR Interval Summary Free Text/Dictation Patient's condition is stable. Denies any chest pain or shortness of breath. General exam; middle-aged female, awake alert, currently no distress. H ENT exam; supple neck, no JVD. No lymphadenopathy. Midline trachea. No neck masses. Patient has good dentition. Chest exam; clear to auscultation. S1-S2 audible, no murmurs. Regular rhythm. Abdomen exam; soft, nontender. No organomegaly. Extremity exam; no peripheral edema clubbing. EMERGENCY DOCTOR exam; no focal deficit. Chest x-ray was reviewed from today which is showing a very tiny right apical pneumothorax with interval improvement. Assessment and recommendations; 1. Patient status post lung lesion biopsy with ensuing small right apical pneumothorax, clinically and radiologically improving. Consider discharge. Patient is cleared from a pulmonary perspective to have thyroid biopsy done as an outpatient this coming Saturday. Exam/Review of Systems Exam Vitals Vital Signs Date Temp Pulse Resp B/P (MAP) Pulse Ox O2 O2 Flow FiO2 Time Delivery Rate 03/21/19 Non 15.0 08:35 Rebreather 03/21/19 98.3 69 20 129/67 100 07:37 (87) 03/21/19 100 07:31 Intake and Output 03/20/19 03/20/19 03/21/19 1515:00 23:00 07:00 IntakeIntake Total 600 ml 350 ml BalanceBalance 600 ml 350 ml Results Result Diagram: 03/21/19 0558 03/20/19 0552 Results 24hrs Laboratory Tests Test 03/21/19 05:58 White Blood Count 6.6 Red Blood Count 4.38 Hemoglobin 11.1 L Hematocrit 35.9 L Mean Corpuscular Volume 82.0 Mean Corpuscular Hemoglobin 25.3 L Mean Corpuscular Hemoglobin Concent 30.9 L Red Cell Distribution Width 16.6 H Platelet Count 172 Mean Platelet Volume 9.0 Immature Granulocytes % 0.200 Neutrophils % 68.9 Lymphocytes % 17.3 Monocytes % 9.7 Eosinophils % 3.3 Basophils % 0.6 Nucleated Red Blood Cells % 0.0 Immature Granulocytes # 0.010 Neutrophils # 4.6 Lymphocytes # 1.1 Monocytes # 0.6 Eosinophils # 0.2 Basophils # 0.0 Nucleated Red Blood Cells # 0.0 Medications Medication Current Medications IV Flush (NS 3 ml) 3 ml PER PROTOCOL IV ; Start 03/19/19 at 18:30 Ondansetron HCl (Zofran Inj) 4 mg Q6H PRN IV NAUSEA/VOMITING; Start 03/19/19 at 18:30 Acetaminophen (Tylenol Tab) 650 mg Q6H PRN PO .PAIN 1-3 OR TEMP Last administered on 03/20/19at 21:17; Admin Dose 650 MG; Start 03/19/19 at 18:30 BOBBY DE JESUS Mar 21, 2019 10:41
[2019-03-21 11:13] VITALS: BP 116/63; PULSE 72; RESP 20
--- NOTE | 2019-03-21 11:21 | PDOCDIS ---
Discharge Instructions DIAGNOSIS Discharge Diagnosis Post-biopsy pneumothorax CONDITION [id number] Patient Condition: [id number] Good HOME CARE INSTRUCTIONS: [id number] Diet Instructions: [id number] Regular ACTIVITY: [id number] Activity Restrictions: [id number] No Restrictions FOLLOW UP/APPOINTMENTS Follow-up Plan 1. Follow up with your primary care doctor as scheduled. 2. Keep your biopsy site clean and dry. 3. For new shortness of breath or chest pain, return to the emergency room. 1. Devika un seguimiento con wheat mdico de atencin primaria segn lo programado. 2. Mantenga wheat sitio de biopsia limpio y seco. 3. Para roxy nueva dificultad para respirar o dolor en el pecho, regrese a la davi de emergencias. RAO PALAFOX MD Mar 21, 2019 11:21
--- NOTE | 2019-03-21 16:19 | DS ---
Date/Time of Note Date/Time of Note DATE: 03/21/19 TIME: 16:18 Discharge Summary Admission/Discharge Info Admit Date/Time Mar 19, 2019 at 09:10 Discharge Date/Time Mar 21, 2019 at 15:28 Discharge Diagnosis Post-biopsy pneumothorax Patient Condition: Good Hx of Present Illness Patient is a woman with a past medical history significant for left- sided breast cancer in remission who was getting a elective lung biopsy for suspected right-sided lung nodule who developed spontaneous pneumothorax. Before the procedure and even after the procedure the patient denies any shortness of breath whatsoever and feels completely fine at this time. Patient has absolutely no acute complaints, denies chest pain, shortness of breath, nausea, vomiting, abdominal pain, bowel or bladder dysfunction, leg pain. Hospital Course The patient was placed on high-flow oxygen to minimize the size of the pneumothorax. She never had any symptoms; pulmonary or otherwise. On repeat CXR the pneumothorax had shrunk, but not completely resolved. She was discharged. Home Meds Discontinued Scripts Hydrocodone/Acetaminophen ([place] 5-325 Tablet) 1 Each Tablet, 1 EACH PO Q4 for PAIN, #30 TAB Prov:CAROLE MULLINS 10/18/17 Follow-up Plan 1. Follow up with your primary care doctor as scheduled. 2. Keep your biopsy site clean and dry. 3. For new shortness of breath or chest pain, return to the emergency room. 1. Devika un seguimiento con wheat mdico de atencin primaria segn lo programado. 2. Mantenga wheat sitio de biopsia limpio y seco. 3. Para roxy nueva dificultad para respirar o dolor en el pecho, regrese a la davi de emergencias. Primary Care Provider Not On Staff Doctor Time spent on discharge: > 30 minutes Pending Labs Laboratory Tests Test 03/21/19 05:58 White Blood Count 6.6 10^3/ul (4.8-10.8) Red Blood Count 4.38 10^6/ul (4.20-5.40) Hemoglobin 11.1 g/dl (12.0-16.0) Hematocrit 35.9 % (37.0-47.0) Mean Corpuscular Volume 82.0 fl (82.0-101.0) Mean Corpuscular Hemoglobin 25.3 pg (29.0-33.0) Mean Corpuscular Hemoglobin Concent 30.9 g/dl (32.0-37.0) Red Cell Distribution Width 16.6 % (11.5-14.5) Platelet Count 172 10^3/UL (140-415) Mean Platelet Volume 9.0 fl (7.4-10.4) Immature Granulocytes % 0.200 % (0.001-0.429) Neutrophils % 68.9 % (39.0-77.0) Lymphocytes % 17.3 % (15.0-51.0) Monocytes % 9.7 % (0.0-11.0) Eosinophils % 3.3 % (0.0-7.0) Basophils % 0.6 % (0.0-2.0) Nucleated Red Blood Cells % 0.0 /100WBC (0.0-0.0) Immature Granulocytes # 0.010 10^3/ul (0.0-0.031) Neutrophils # 4.6 10^3/ul (1.6-7.5) Lymphocytes # 1.1 10^3/ul (0.8-2.9) Monocytes # 0.6 10^3/ul (0.3-0.9) Eosinophils # 0.2 10^3/ul (0.0-0.5) Basophils # 0.0 10^3/ul (0.0-0.1) Nucleated Red Blood Cells # 0.0 10^3/ul (0.0-0.0) RAO PALAFOX MD Mar 21, 2019 16:19
== END 2019-03-21 15:28 | disposition home or self-care (01) | DRG 201 ==
LOC: E/R 15:55 → SUATTDRO 17:58 → TEL 18:21 → OBSVTOIN 03-20 09:10
PROVIDERS: ADMIT Internal Medicine; ATTEND Internal Medicine
DX: J95.811 Postprocedural pneumothorax (principal); Z85.3 Personal history of malignant neoplasm of breast; R91.8 Other nonspecific abnormal finding of lung field
CPT/HCPCS: 71045; 71250; 77012; 80053; 80061; 83036; 83735; 84443; 85025; 85610; 85730; 88307; 88313; 88342; G0378; J2405; J3010; J7030